=== PATIENT | female | born 1965 | race Caucasian/White ===

== ENCOUNTER 2017-04-17 09:59 | Emergency (ER) | payer OTHER ==
[2017-04-17] MEDS ORDERED: Ondansetron INJ* 2 MG/ML VIAL ONE (10:36)
[2017-04-17] MEDS ORDERED: Ondansetron INJ* 2 MG/ML VIAL IV ONE ×2 (10:45)
[2017-04-17] MEDS: NS 0.9% 1000 ML* 2,000 ML IV ONE ×2 (10:46→10:54)
[2017-04-17 11:07] LABS: Hematocrit 51 % (35-47); Hemoglobin 17.9 g/dl (12.0-16.0); Mean Corpuscular HGB Conc 35 g/dl (31-36); Mean Corpuscular Hemoglobin 30 pg (27-31); Mean Corpuscular Volume 85 fL (80-97); Mean Platelet Volume 9 um3 (7.4-10.4); Red Blood Count 6.06 10^6/ul (4.0-5.4); Red Cell Distribution Width 13 % (10.5-15); White Blood Count 15.3 10^3/ul (3.5-10.8)
[2017-04-17 11:23] LABS: Albumin 4.4 g/dL (3.2-5.2); C Reactive Protein 10.82 mg/L (< 5.00); Calcium 9.5 mg/dL (8.6-10.3); EGFR Non-African American 87.9 (>60); Globulin 2.9 g/dL (2-4); Potassium 3.2 mmol/L (3.5-5.0); Total Bilirubin 0.7 mg/dL (0.2-1.0); Total Protein 7.3 g/dL (6.4-8.9)
[2017-04-17 13:07] LABS: Urine Bacteria Absent (Absent); Urine Bilirubin Negative (Negative); Urine Glucose Negative (Negative); Urine Nitrite Negative (Negative)
[2017-04-17 13:16] VITALS: BP 128/47
--- NOTE | 2017-04-17 14:58 | ED ---
Xu Chavez Abhishek, scribed for Hernan Dong MD on 04/17/17 at 1014 . Abdominal Pain/Female - HPI Summary HPI Summary: This patient is a 51 year old F presenting to [facility] accompanied by male with a chief complaint of abd pain since 2300 last night. The patient rates the pain 6/ 10 in severity. Patient describes the abd pain as cramping. Symptoms aggravated by nothing. Symptoms alleviated by nothing. Patient reports N/V/D every half hour, and skin diaphoresis. Patient denies dizziness, lightheadedness, cough, body aches, and fever. - History of Current Complaint Chief Complaint: EDAbdPain Stated Complaint: VOMITING, ABD PAIN Hx Obtained From: Patient Timing: Constant Severity Initially: Moderate Severity Currently: Moderate Pain Intensity: 6 Pain Scale Used: 0-10 Numeric Character: Cramping Aggravating Factor(s): Nothing Alleviating Factor(s): Nothing Associated Signs and Symptoms: Positive: Diaphoresis, Nausea, Vomiting, Diarrhea , Other: - Negative Body aches. Negative: Fever, Cough, Dizzy Allergies/Adverse Reactions: Allergies Allergy/AdvReac Type Severity Reaction Status Date / Time No Known Drug Allergy Allergy See Comment Verified 05/08/15 11:47 Clavulanic Acid AdvReac Nausea Verified 05/08/15 11:47 [From Augmentin] Lorazepam [From Ativan] AdvReac Anxiety Verified 05/08/15 11:47 PMH/Surg Hx/FS Hx/Imm Hx Endocrine/Hematology History: Denies: Hx Diabetes, Hx Systemic Lupus Erythematosus Cardiovascular History: Reports: Hx Hypertension Denies: Hx Congestive Heart Failure GI History: Reports: Hx Gastroesophageal Reflux Disease, Hx Ulcer History: Denies: Hx Renal Disease Musculoskeletal History: Reports: Hx Back Problems - degenerative disc disease L5-S1 Denies: Hx Rheumatoid Arthritis Sensory History: Reports: Hx Contacts or Glasses Denies: Hx Hearing Problem Opthamlomology History: Reports: Hx Contacts or Glasses Psychiatric History: Reports: Hx Anxiety, Hx Depression, Hx Community Mental Health Tx Denies: Hx Eating Disorder, Hx of Violent Episodes Against Others - Pt denies - Surgical History Surgery Procedure, Year, and Place: L knee surgery in her 20s Infectious Disease History: No Infectious Disease History: Denies: Traveled Outside the [place] in Last 30 Days - Family History Known Family History: Positive: Cardiac Disease - Cardiac Arrest, Respiratory Disease - COPD - Social History Occupation: Employed Full-time Alcohol Use: Rare Substance Use Type: Reports: Marijuana Substance Use Comment - Amount & Last Used: Last used approximtely 1 week ago Smoking Status (MU): Heavy Every Day Tobacco Smoker Type: Cigarettes Amount Used/How Often: one PPD Review of Systems Positive: Skin Diaphoresis, Other. Negative: Fever Eyes: Negative ENT: Negative Cardiovascular: Negative Negative: Cough Positive: Abdominal Pain, Vomiting, Diarrhea, Nausea Genitourinary: Negative Musculoskeletal: Other - Negative Body aches Skin: Negative Neurological: Other - Negative dizziness, lightheadedness Psychological: Normal All Other Systems Reviewed And Are Negative: Yes Physical Exam - Summary Physical Exam Summary: Constitutional: Well-developed, Well-nourished, Alert. (-) Distressed Skin: Warm, Dry HENT: Normocephalic; Atraumatic Eyes: Conjunctiva normal Neck: Musculoskeletal ROM normal neck. (-) JVD, (-) Stridor, (-) Tracheal deviation Cardio: Rhythm regular, rate normal, Heart sounds normal; Intact distal pulses; The pedal pulses are 2+ and symmetric. Radial pulses are 2+ and symmetric. (-) Murmur Pulmonary/Chest wall: Effort normal. (-) Respiratory distress, (-) Wheezes, (-) Rales Abd: Soft, (-) Tenderness, (-) Distension, (-) Guarding, (-) Rebound Musculoskeletal: (-) Edema Lymph: (-) Cervical adenopathy Neuro: Alert, Oriented x3 Psych: Mood and affect Normal Triage Information Reviewed: Yes Vital Signs On Initial Exam: Initial Vitals Temp Pulse Resp BP Pulse Ox 98.2 F 122 19 139/99 95 04/17/17 10:00 04/17/17 10:00 04/17/17 10:00 04/17/17 10:00 04/17/17 10:00 Vital Signs Reviewed: Yes Diagnostics - Vital Signs Vital Signs Temp Pulse Resp BP Pulse Ox 04/17/17 10:00 98.2 F 122 19 139/99 95 - Laboratory Result Diagrams: 04/17/17 10:53 04/17/17 10:53 Lab Statement: Any lab studies that have been ordered have been reviewed, and results considered in the medical decision making process. Abdominal Pain Fem Course/Dx - Course Course Of Treatment: This patient is a 51 year old F presenting to [facility] accompanied by male with a chief complaint of abd pain since 2300 last night. Patient describes the abd pain as cramping. Patient reports N/V/D every half hour, and skin diaphoresis. Patient denies dizziness, lightheadedness, cough, body aches, and fever. Volume status normalized. No suspicion for colitis. Patient will be discharged home. The Dx will be gastroenteritis. The patient is recommened to follow up with PCP within 2 to 3 days and return the the ED for worsening symptoms or signs of new symptoms. - Diagnoses Provider Diagnoses: Gastroenteritis Discharge - Discharge Plan Condition: Stable Disposition: HOME Prescriptions: Ondansetron ODT TAB* [Zofran 4 MG Odt TAB*] 4 mg PO Q8H PRN #12 tab.odt PRN Reason: Nausea/Vomiting Patient Education Materials: Gastroenteritis (ED) Forms: *Work Release Referrals: Luis Felipe Lao MD [Primary Care Provider] - (Follow up with PCP within 2 to 3 days ) The documentation as recorded by the Xu lund Abhishek accurately reflects the service I personally performed and the decisions made by , Hernan Dong MD.
== END 2017-04-17 13:15 | disposition home or self-care (01) ==
LOC: ED 09:59
DX: K52.9 Noninfective gastroenteritis and colitis, unspecified (principal); F17.210 Nicotine dependence, cigarettes, uncomplicated
CPT/HCPCS: 36415; 80053; 81003; 81015; 83605; 83690; 85025; 86140; 96374; 96376; 99282; J2405